=== PATIENT | female | born 1960 | race Caucasian/White ===

== ENCOUNTER → 2017-02-01 | Outpatient (CLI) | payer OTHER ==
[2017-02-01 11:24] LABS: HEMOGLOBIN 13.2 gm/dl (12.3-15.3); RED BLOOD COUNT 4.63 M/UL (4.00-5.10); WHITE BLOOD COUNT 7.6 K/UL (4.5-11.0)
[2017-02-01 11:42] LABS: BUN/CREATININE RATIO 22 (0-10)
== END ==
LOC: MAMO 10:52
PROVIDERS: Internal Medicine Hematology & Oncology
DX: Z12.31 Encounter for screening mammogram for malignant neoplasm of breast (principal); C50.419 Malignant neoplasm of upper-outer quadrant of unspecified female breast; C79.51 Secondary malignant neoplasm of bone; C79.52 Secondary malignant neoplasm of bone marrow; Z98.890 Other specified postprocedural states
CPT/HCPCS: 36415; 80053; 85025; G0202

== ENCOUNTER → 2017-02-09 | Outpatient (CLI) | payer OTHER | LOC: MAMO 07:54 | DX: C50.419 Malignant neoplasm of upper-outer quadrant of unspecified female breast (principal); C79.52 Secondary malignant neoplasm of bone marrow; C79.51 Secondary malignant neoplasm of bone | CPT/HCPCS: G0206 ==

== ENCOUNTER → 2021-02-24 | Outpatient (CLI) | payer OTHER | LOC: MAMO 13:00 | DX: Z12.31 Encounter for screening mammogram for malignant neoplasm of breast (principal); C50.419 Malignant neoplasm of upper-outer quadrant of unspecified female breast | CPT/HCPCS: 77063; 77067 ==

== ENCOUNTER → 2022-03-10 | Outpatient (CLI) | payer OTHER | LOC: EXRD 12:47 | DX: Z12.31 Encounter for screening mammogram for malignant neoplasm of breast (principal); C50.419 Malignant neoplasm of upper-outer quadrant of unspecified female breast | CPT/HCPCS: 77063; 77067; 77080 ==